=== PATIENT | male | born 1980 | race Caucasian/White ===

== ENCOUNTER 2020-01-08 16:25 | Emergency (ER) | payer OTHER ==
[~2020-01-08] VITALS: Ht 172.7 cm; Wt 81.6 kg
[2020-01-08 16:28] VITALS: BP 130/88
[2020-01-08] MEDS ORDERED: LIDOCAINE 0.5% HCL 50 ML VIAL ONE (16:53)
[2020-01-08] MEDS ORDERED: LIDOCAINE 2% 20 ML MDV ONE (16:54)
[2020-01-08] MEDS ORDERED: LIDOCAINE 2%-EPI 1:100,000 30 ML VIAL ONE ×2 (16:55→16:56)
[2020-01-08] MEDS ORDERED: LIDOCAINE HCL/PF 1% 30 ML VIAL TP ONE (17:00)
== END 2020-01-08 17:36 | disposition home or self-care (01) ==
LOC: ER 16:34
DX: S01.112A Laceration without foreign body of left eyelid and periocular area, initial encounter (principal); S40.812A Abrasion of left upper arm, initial encounter; S40.811A Abrasion of right upper arm, initial encounter; S09.8XXA Other specified injuries of head, initial encounter; V19.9XXA Pedal cyclist (driver) (passenger) injured in unspecified traffic accident, initial encounter; Y93.I9 Activity, other involving external motion; Y92.89 Other specified places as the place of occurrence of the external cause; Y99.8 Other external cause status
CPT/HCPCS: 12013; 99282; A6403; J3490 ×5

== ENCOUNTER 2020-01-16 19:15 | Emergency (ER) | payer OTHER ==
[~2020-01-16] VITALS: Ht 170.2 cm; Wt 81.6 kg
[2020-01-16 19:54] VITALS: BP 122/68
== END 2020-01-16 20:31 | disposition home or self-care (01) ==
LOC: ER 19:15
DX: S01.112D Laceration without foreign body of left eyelid and periocular area, subsequent encounter (principal); V19.88XD Pedal cyclist (driver) (passenger) injured in other specified transport accidents, subsequent encounter